=== PATIENT | female | born 1950 | race Caucasian/White ===

== ENCOUNTER 2016-12-30 13:35 | Outpatient (CLI) | payer MEDICARE, OTHER ==
--- NOTE | 2016-12-31 13:49 | DEXA Report ---
DEXA SCAN: 12/30/2016 CLINICAL INDICATION: Postmenopausal. TECHNIQUE: Dual energy x-ray absorptiometry (DXA) was performed on a Erenis system. Regions measured are the AP spine, femoral neck, and, if needed, forearm. COMPARISON: None. In accordance with the International Society for Clinical Densitometry (ISCD) guidelines, data from previous exams may be reanalyzed using current recommendations and techniques. This is done to allow a more accurate basis for comparison with the current study. FINDINGS: The data for the lumbar spine is as follows: REGION BMD (g/cm/cm) T-SCORE Z-SCORE L1 0.960 -1.4 0.0 L2 1.157 -0.4 1.1 L3 1.199 0.0 1.4 L4 1.046 -1.3 0.1 TOTAL 1.090 -0.8 0.7 NOTE: All evaluable vertebrae are used for classification. The data for the hip is as follows: REGION BMD (g/cm/cm) T-SCORE Z-SCORE Neck 0.886 -1.1 0.3 TOTAL 0.780 -1.8 -0.7 NOTE: The femoral neck or total proximal femur, whichever is lowest, is used for classification. * Denotes significant change at the 95% confidence level. Denotes dissimilar scan types or analysis methods. IMPRESSION: THE WHO CLASSIFICATION BASED ON THE INTERNATIONAL REFERENCE STANDARD IS OSTEOPENIA. THE FRACTURE RISK IS INCREASED. RECOMMENDATION: Patients with diagnosis of osteoporosis or osteopenia should have regular bone mineral density assessment. For those eligible for Medicare, routine testing is allowed once every 2 years. Testing frequency can be increased for patients who have rapidly progressing disease or for those who are receiving medical therapy to restore bone mass. COMMENT: World Health Organization (WHO) definitions for osteoporosis and osteopenia: NORMAL BMD: T-score at -1.0 or higher, fracture risk is low. OSTEOPENIA BMD: T-score between -1.0 and -2.5, fracture risk is increased. OSTEOPOROSIS BMD: T-score at -2.5 or lower, fracture risk high. National Osteoporosis Foundation recommends: 1. Obtain adequate dietary calcium (at least 1200 mg per day) and vitamin D (400 -800 international units per day). 2. Participate, as appropriate, in regular weightbearing and muscle- strengthening exercise. 3. Avoid tobacco use and reduce alcohol and caffeine intake. 4. For more detailed information see the website at www.NOF.org. MTDD
== END 2016-12-30 13:36 | disposition home or self-care (01) ==
LOC: DI 13:35
PROVIDERS: ATTEND Naturopath
DX: Z13.820 Encounter for screening for osteoporosis (principal); M85.88 Other specified disorders of bone density and structure, other site; Z78.0 Asymptomatic menopausal state
CPT/HCPCS: 77080

== ENCOUNTER 2017-02-02 09:48 | Outpatient (CLI) | payer MEDICARE, OTHER | END 2017-02-02 09:49 | disposition home or self-care (01) | DX: Z13.220 Encounter for screening for lipoid disorders (principal); E03.9 Hypothyroidism, unspecified ==

== ENCOUNTER 2017-11-12 14:39 | Outpatient (CLI) | payer MEDICARE, OTHER ==
[2017-11-12 18:20] LABS: BASOPHILS # (AUTO) 0.1 10^3/uL (0.0-0.1); BASOPHILS % (AUTO) 0.6 %; EOSINOPHILS # (AUTO) 0.1 10^3/uL (0.0-0.7); EOSINOPHILS % (AUTO) 1.3 %; HGB - HEMOGLOBIN 14.2 g/dL (12.0-16.0); LYMPHOCYTES # (AUTO) 4.5 10^3/uL (1.5-3.5); LYMPHOCYTES % (AUTO) 41.6 %; MEAN CORPUSCULAR HEMOGLOBIN 30.5 pg (27.0-31.0); MEAN CORPUSCULAR HGB CONC 33.4 g/dL (32.0-36.0); MEAN CORPUSCULAR VOLUME 91.2 fL (81.0-99.0); MEAN PLATELET VOLUME 9.9 fL (7.9-10.8); MONOCYTES # (AUTO) 0.5 10^3/uL (0.0-1.0); MONOCYTES % (AUTO) 4.3 %; NEUTROPHILS # (AUTO) 5.7 10^3/uL (1.5-6.6); NEUTROPHILS % (AUTO) 52.2 %; PLT - PLATELET COUNT 235 10^3/uL (130-450); RED BLOOD COUNT 4.66 10^6/uL (4.20-5.40); RED CELL DISTRIBUTION WIDTH 12.9 % (12.0-15.0); WHITE BLOOD COUNT 10.9 x10^3/uL (4.8-10.8)
[2017-11-12 18:25] LABS: THYROID STIMULATING HORMONE < 0.08 uIU/mL (0.34-5.60)
[2017-11-12 18:27] LABS: FREE T4 (FREE THYROXINE) 0.58 ng/dL (0.58-1.64)
[2017-11-16 13:31] LABS: THYROID PEROXIDASE ANTIBODIES 38 IU/mL (<9)
[2017-11-16 22:07] LABS: METHYLMALONIC ACID 191 nmol/L (87-318)
== END 2017-11-12 14:40 | disposition home or self-care (01) ==
LOC: LAB.F 14:39
PROVIDERS: ATTEND Naturopath
DX: E06.3 Autoimmune thyroiditis (principal)
CPT/HCPCS: 36415; 82747; 83921; 84439; 84443; 84481; 85025; 86376; 86800

== ENCOUNTER 2018-01-04 11:14 | Outpatient (CLI) | payer MEDICARE, OTHER ==
[2018-01-04 18:34] LABS: BASOPHILS # (AUTO) 0.1 10^3/uL (0.0-0.1); BASOPHILS % (AUTO) 0.8 %; EOSINOPHILS # (AUTO) 0.1 10^3/uL (0.0-0.7); EOSINOPHILS % (AUTO) 0.9 %; HGB - HEMOGLOBIN 14.1 g/dL (12.0-16.0); LYMPHOCYTES # (AUTO) 4.5 10^3/uL (1.5-3.5); LYMPHOCYTES % (AUTO) 49.2 %; MEAN CORPUSCULAR HEMOGLOBIN 31.1 pg (27.0-31.0); MEAN CORPUSCULAR HGB CONC 33.1 g/dL (32.0-36.0); MEAN CORPUSCULAR VOLUME 93.8 fL (81.0-99.0); MEAN PLATELET VOLUME 10.7 fL (7.9-10.8); MONOCYTES # (AUTO) 0.4 10^3/uL (0.0-1.0); MONOCYTES % (AUTO) 4.8 %; NEUTROPHILS % (AUTO) 44.3 %; PLT - PLATELET COUNT 206 10^3/uL (130-450); RED BLOOD COUNT 4.55 10^6/uL (4.20-5.40); RED CELL DISTRIBUTION WIDTH 12.8 % (12.0-15.0); WHITE BLOOD COUNT 9.1 x10^3/uL (4.8-10.8)
[2018-01-04 18:57] LABS: THYROID STIMULATING HORMONE < 0.08 uIU/mL (0.34-5.60)
[2018-01-04 18:59] LABS: FREE T4 (FREE THYROXINE) 0.75 ng/dL (0.58-1.64)
[2018-01-06 11:41] LABS: THYROID PEROXIDASE ANTIBODIES 47 IU/mL (<9)
== END 2018-01-04 11:15 | disposition home or self-care (01) ==
LOC: LAB.S 11:14
PROVIDERS: ATTEND Naturopath
DX: E06.3 Autoimmune thyroiditis (principal); D72.829 Elevated white blood cell count, unspecified
CPT/HCPCS: 36415; 82306; 83090; 84439; 84443; 84481; 85025; 86141; 86376; 86800

== ENCOUNTER 2020-04-03 07:47 | Outpatient (CLI) | payer MEDICARE, OTHER ==
[2020-04-03 14:52] LABS: BASOPHILS # (AUTO) 0.1 10^3/uL (0.0-0.1); BASOPHILS % (AUTO) 0.8 %; EOSINOPHILS # (AUTO) 0.1 10^3/uL (0.0-0.7); EOSINOPHILS % (AUTO) 1.7 %; HGB - HEMOGLOBIN 13.4 g/dL (12.0-16.0); LYMPHOCYTES # (AUTO) 3.4 10^3/uL (1.5-3.5); LYMPHOCYTES % (AUTO) 52.9 %; MEAN CORPUSCULAR HEMOGLOBIN 30.2 pg (27.0-31.0); MEAN CORPUSCULAR HGB CONC 31.5 g/dL (32.0-36.0); MEAN CORPUSCULAR VOLUME 96.2 fL (81.0-99.0); MONOCYTES # (AUTO) 0.3 10^3/uL (0.0-1.0); MONOCYTES % (AUTO) 4.8 %; NEUTROPHILS # (AUTO) 2.6 10^3/uL (1.5-6.6); NEUTROPHILS % (AUTO) 39.5 %; PLT - PLATELET COUNT 204 10^3/uL (130-450); RED BLOOD COUNT 4.43 10^6/uL (4.20-5.40); RED CELL DISTRIBUTION WIDTH 12.8 % (12.0-15.0); WHITE BLOOD COUNT 6.5 x10^3/uL (4.8-10.8)
[2020-04-03 15:28] LABS: ALBUMIN 3.8 g/dL (3.2-5.5); ALBUMIN/GLOBULIN RATIO 1.4 (1.0-2.2); ALKALINE PHOSPHATASE 47 IU/L (42-121); ALT ALANINE AMINOTRANSFERASE 16 IU/L (10-60); AST ASPARTATE AMINOTRANSFERASE 23 IU/L (10-42); BILIRUBIN,TOTAL 0.6 mg/dL (0.2-1.0); BUN - BLOOD UREA NITROGEN 11 mg/dL (6-20); CALCIUM 8.9 mg/dL (8.5-10.3); CARBON DIOXIDE - CO2 28 mmol/L (21-32); CHLORIDE 106 mmol/L (101-111); CHOLESTEROL 153 mg/dL; CREATININE 0.7 mg/dL (0.4-1.0); GLUCOSE 98 mg/dL (70-100); HDL CHOLESTEROL 38 mg/dL; LDL CHOLESTEROL,CALCULATED 90 mg/dL; LDL/HDL RATIO 2.4 (<4.4); SODIUM 142 mmol/L (135-145); TOTAL PROTEIN 6.6 g/dL (6.7-8.2); VLDL CHOLESTEROL 25 mg/dL
[2020-04-03 15:41] LABS: CRP HIGH SENSITIVITY < 0.5 mg/L; THYROID STIMULATING HORMONE < 0.08 uIU/mL (0.34-5.60)
[2020-04-03 15:43] LABS: FREE T3 3.57 pg/mL (2.5-3.9); FREE T4 (FREE THYROXINE) 0.74 ng/dL (0.58-1.64)
[2020-04-03 15:48] LABS: TOTAL T3 1.59 ng/mL (0.87-1.78)
[2020-04-03 15:49] LABS: FERRITIN 71.7 ng/mL (11.0-306.8)
[2020-04-03 20:40] LABS: HEMOGLOBIN A1c% 5.5 % (4.27-6.07)
[2020-04-04 05:48] LABS: ESTRADIOL 31 pg/mL; PROGESTERONE 4.7 ng/mL
[2020-04-04 13:11] LABS: HOMOCYSTEINE 7.7 umol/L (<10.4)
[2020-04-05 22:23] LABS: T3 REVERSE 12 ng/dL (8-25)
== END 2020-04-03 07:48 | disposition home or self-care (01) ==
LOC: LAB.S 07:47
PROVIDERS: ATTEND Family Medicine
DX: E03.9 Hypothyroidism, unspecified (principal); E78.5 Hyperlipidemia, unspecified; R53.83 Other fatigue; N95.1 Menopausal and female climacteric states; R73.09 Other abnormal glucose; E55.9 Vitamin D deficiency, unspecified; E78.1 Pure hyperglyceridemia
CPT/HCPCS: 36415; 80053; 80061; 81599; 82306; 82626; 82652; 82670; 82728; 83036; 83090; 83525; 83721; 84144; 84439; 84443; 84480; 84481; 84482; 85025; 85651; 86141; 86376

== ENCOUNTER 2020-11-05 14:38 | Outpatient (CLI) | payer MEDICARE, OTHER ==
[2020-11-05 20:07] LABS: BASOPHILS # (AUTO) 0.1 10^3/uL (0.0-0.1); BASOPHILS % (AUTO) 0.8 %; EOSINOPHILS # (AUTO) 0.1 10^3/uL (0.0-0.7); EOSINOPHILS % (AUTO) 0.6 %; HCT - HEMATOCRIT 42.4 % (37.0-47.0); HGB - HEMOGLOBIN 13.8 g/dL (12.0-16.0); LYMPHOCYTES # (AUTO) 4.8 10^3/uL (1.5-3.5); LYMPHOCYTES % (AUTO) 46.9 %; MEAN CORPUSCULAR HEMOGLOBIN 31.1 pg (27.0-31.0); MEAN CORPUSCULAR HGB CONC 32.5 g/dL (32.0-36.0); MEAN CORPUSCULAR VOLUME 95.5 fL (81.0-99.0); MEAN PLATELET VOLUME 11.7 fL (7.9-10.8); MONOCYTES # (AUTO) 0.6 10^3/uL (0.0-1.0); MONOCYTES % (AUTO) 5.5 %; NEUTROPHILS # (AUTO) 4.7 10^3/uL (1.5-6.6); NEUTROPHILS % (AUTO) 45.9 %; PLT - PLATELET COUNT 281 10^3/uL (130-450); RED BLOOD COUNT 4.44 10^6/uL (4.20-5.40); RED CELL DISTRIBUTION WIDTH 12.4 % (12.0-15.0); WHITE BLOOD COUNT 10.2 x10^3/uL (4.8-10.8)
[2020-11-05 20:41] LABS: ALBUMIN 4.4 g/dL (3.2-5.5); ALBUMIN/GLOBULIN RATIO 1.4 (1.0-2.2); BILIRUBIN,TOTAL 0.8 mg/dL (0.2-1.0); CALCIUM 8.9 mg/dL (8.5-10.3); CREATININE 0.7 mg/dL (0.4-1.0); POTASSIUM 4.3 mmol/L (3.5-5.0); TOTAL PROTEIN 7.5 g/dL (6.7-8.2)
== END 2020-11-05 14:39 | disposition home or self-care (01) ==
LOC: LAB.S 14:38
PROVIDERS: ATTEND Family Medicine
DX: E87.5 Hyperkalemia (principal); D72.820 Lymphocytosis (symptomatic)
CPT/HCPCS: 36415; 80053; 85025

== ENCOUNTER 2020-12-12 15:12 | Outpatient (CLI) | payer MEDICARE, OTHER ==
--- NOTE | 2020-12-12 16:01 | XRAY Report ---
PROCEDURE: Knee 3 View BILAT INDICATIONS: RT KNEE PX/SWELLING, LT KNEE PX TECHNIQUE: 3 views of each knee are obtained. COMPARISON: None. FINDINGS: Bones: No acute fractures or dislocations. Right-sided bipartite patella versus chronic ununited pa tellar fracture. No suspicious bony lesions. Mild joint compartment periarticular osteophyte formati on. Soft tissues: No joint effusion. No suspicious soft tissue calcifications. IMPRESSION: 1. Bilateral osteoarthritis. 2. Bipartite right-sided patella versus chronic ununited right patellar fracture. This could be furth er assessed with MRI, if clinically indicated. 3. No acute fracture. No osseous lesion. If symptoms and/or clinical suspicion for pathology continue , further assessment with repeat plain films, or advanced imaging (e.g., CT, MRI, or bone scan) is re commended for further assessment. Reviewed by: Yosef Blum MD on 12/12/2020 3:59 PM PDT Approved by: Yosef Blum MD on 12/12/2020 3:59 PM PDT Station ID: [id number]
== END 2020-12-12 15:13 | disposition home or self-care (01) ==
LOC: DI.S 15:12
PROVIDERS: ATTEND Family Medicine
DX: M17.0 Bilateral primary osteoarthritis of knee (principal); R93.6 Abnormal findings on diagnostic imaging of limbs

== ENCOUNTER 2022-02-13 08:00 | Outpatient (CLI) | payer MEDICARE, OTHER ==
--- NOTE | 2022-02-13 10:35 | XRAY Report ---
PROCEDURE: Hip w/Pelvis 1V RT INDICATIONS: RIGHT HIP PAIN TECHNIQUE: AP pelvis with lateral view(s) of the right hip(s). COMPARISON: None. FINDINGS: Bones: No fractures or dislocations. Mild symmetric appearing bilateral hip joint osteoarthritic ch anges are seen with joint space narrowing and subchondral sclerosis. No evidence of avascular necrosi s of femoral head. Pelvic ring appears intact. No suspicious bony lesions. Soft tissues: The visualized bowel gas pattern is normal. No suspicious soft tissue calcifications. IMPRESSION: Mild bilateral hip joint osteophyte is. No hip fracture or dislocation. No evidence of av ascular necrosis. Reviewed by: Lalo Connolly MD on 02/13/2022 10:33 AM PDT Approved by: Lalo Connolly MD on 02/13/2022 10:33 AM PDT Station ID: [id number]
== END 2022-02-13 23:59 | disposition home or self-care (01) ==
LOC: DI.S 08:00
PROVIDERS: ATTEND Family Medicine
DX: M16.11 Unilateral primary osteoarthritis, right hip (principal)

== ENCOUNTER 2022-05-27 15:15 | Outpatient (CLI) | payer MEDICARE ==
--- NOTE | 2022-05-27 16:34 | XRAY Report ---
PROCEDURE: Knee 3 View RT INDICATIONS: SEVERE CHRONIC PAIN TECHNIQUE: 3 views of the right knee(s) were acquired. COMPARISON: Bilateral knee radiographs 12/12/2020. FINDINGS: Bones: No acute fractures or dislocations. Chronic fracture of the lateral patella is unchanged. Sma ll metallic density. No suspicious bony lesions. Small loose bodies. Moderate degenerative changes ap preciated. Soft tissues: Small joint effusion. No suspicious soft tissue calcifications. IMPRESSION: No acute abnormality identified. Chronic lateral patellar fracture is unchanged. Small loose bodies suspected. MRI could be considered for further evaluation. Reviewed by: Erasmo King MD on 05/27/2022 3:32 PM RHIANNON Approved by: Erasmo King MD on 05/27/2022 3:32 PM AKNORBERTO Station ID: [id number]
== END 2022-05-27 15:16 | disposition home or self-care (01) ==
LOC: DI.S 15:15
PROVIDERS: ATTEND Family Medicine
DX: S82.091K Other fracture of right patella, subsequent encounter for closed fracture with nonunion (principal); M25.561 Pain in right knee

== ENCOUNTER 2023-04-02 10:54 | Outpatient (CLI) | payer MEDICARE, OTHER ==
[2023-04-02 14:21] LABS: BASOPHILS # (AUTO) 0.1 10^3/uL (0.0-0.1); BASOPHILS % (AUTO) 0.8 %; EOSINOPHILS # (AUTO) 0.1 10^3/uL (0.0-0.7); EOSINOPHILS % (AUTO) 0.9 %; HCT - HEMATOCRIT 44.1 % (37.0-47.0); HGB - HEMOGLOBIN 14.2 g/dL (12.0-16.0); LYMPHOCYTES % (AUTO) 45.9 %; MEAN CORPUSCULAR HEMOGLOBIN 31.1 pg (27.0-31.0); MEAN CORPUSCULAR HGB CONC 32.2 g/dL (32.0-36.0); MEAN CORPUSCULAR VOLUME 96.7 fL (81.0-99.0); MEAN PLATELET VOLUME 11.1 fL (7.9-10.8); MONOCYTES # (AUTO) 0.3 10^3/uL (0.0-1.0); MONOCYTES % (AUTO) 4.9 %; NEUTROPHILS # (AUTO) 3.1 10^3/uL (1.5-6.6); NEUTROPHILS % (AUTO) 47.2 %; PLT - PLATELET COUNT 229 10^3/uL (130-450); RED BLOOD COUNT 4.56 10^6/uL (4.20-5.40); RED CELL DISTRIBUTION WIDTH 12.7 % (12.0-15.0); WHITE BLOOD COUNT 6.5 x10^3/uL (4.8-10.8)
[2023-04-02 14:44] LABS: ALBUMIN 4.4 g/dL (3.2-5.5); ALBUMIN/GLOBULIN RATIO 1.6 (1.0-2.2); BILIRUBIN,TOTAL 0.5 mg/dL (0.2-1.0); CALCIUM 9.6 mg/dL (8.5-10.3); CREATININE 0.8 mg/dL (0.6-1.3); CRP HIGH SENSITIVITY 0.35 mg/L; POTASSIUM 4.3 mmol/L (3.5-4.5); TOTAL PROTEIN 7.2 g/dL (6.4-8.9)
[2023-04-02 14:58] LABS: THYROID STIMULATING HORMONE 2.43 uIU/mL (0.34-5.60)
[2023-04-02 15:05] LABS: FERRITIN 43.4 ng/mL (11.0-306.8)
[2023-04-02 20:27] LABS: ESTIMATED AVERAGE GLUCOSE 105 mg/dL (70-100); HEMOGLOBIN A1c% 5.3 % (4.27-6.07)
[2023-04-04 11:11] LABS: VITAMIN D 25-HYDROXY 66.8 ng/mL (30.0-100.0)
== END 2023-04-02 10:55 | disposition home or self-care (01) ==
LOC: LAB.S 10:54
PROVIDERS: ATTEND Family Medicine
DX: E78.5 Hyperlipidemia, unspecified (principal); E03.9 Hypothyroidism, unspecified; R73.09 Other abnormal glucose; R53.83 Other fatigue; E55.9 Vitamin D deficiency, unspecified; D64.9 Anemia, unspecified
CPT/HCPCS: 36415; 80053; 82306; 82626; 82728; 83036; 83090; 83540; 84439; 84443; 84466; 84480; 84481; 84482; 85025; 86141

== ENCOUNTER 2023-05-12 09:42 | Outpatient (CLI) | payer MEDICARE ==
--- NOTE | 2023-05-13 09:40 | Mammography Report ---
BILATERAL DIGITAL SCREENING MAMMOGRAM 3D/2D: 05/12/2023 CLINICAL: Routine screening. Comparison is made to exam dated: 10/14/2008 mammogram - [facility]. Both breasts are almost entirely fatty (category a/<25% glandular tissue). No significant masses, calcifications, or other findings are seen in either breast. There has been no significant interval change. IMPRESSION: NEGATIVE There is no mammographic evidence of malignancy. A 1 year screening mammogram is recommended. Based on the Tyrer Cuzick model (a risk assessment model) the patients lifetime risk is 3.0% and her 10 year risk is 2.2%. According to the ACR, ACS, and NCCN guidelines, an annual breast MRI exam lali g with mammogram is recommended if the patients lifetime risk is 20% or greater. This exam was interpreted at Station ID: [id number]. NOTE: For mammograms, a report in lay terms will be sent to the patient. Approximately 15% of breast malignancies will not be visualized mammographically. In the management of a palpable breast mass, a negative mammogram must not discourage biopsy of a clinically suspicious lesion. Electronically Signed By: Yoanna lopez/tori:05/12/2023 17:07:25 letter sent: No_Letter ACR BI-RADS Category 1: Negative 3341F PARENCHYMAL PATTERN: (F) - The breast(s) demonstrate(s) diffuse fatty replacement. BI-RADS CATEGORY: (1) - 1 Mammogram [id number] 1 year screening LATERALITY: (B)
== END 2023-05-12 09:43 | disposition home or self-care (01) ==
LOC: DI.S 09:42
PROVIDERS: ATTEND Family Medicine
DX: Z12.31 Encounter for screening mammogram for malignant neoplasm of breast (principal)